=== PATIENT | male | born 1990 | race Hispanic/Latino ===

== ENCOUNTER 2017-01-03 19:08 | Emergency (ER) | payer SELFPAY ==
[2017-01-03 20:20] LABS: Basophils % (Auto) 0.8 % (0.0-1.8); Eosinophils % (Auto) 0.8 % (0.0-4.3); Hematocrit 45.5 % (35.5-45.6); Hemoglobin 15.4 gm/dl (11.8-15.2); Mean Corpuscular HGB Conc 34 % (32-34); Mean Corpuscular Hemoglobin 33 pg (28-32); Mean Corpuscular Volume 99 fl (84-94); Platelet Count 257 K/mm3 (140-440); Red Blood Count 4.61 M/mm3 (3.65-5.03); Red Cell Distribution Width 12.8 % (13.2-15.2); White Blood Count 4.9 K/mm3 (4.5-11.0)
[2017-01-03 20:39] LABS: Alanine Aminotransferase 24 units/L (7-56); Albumin 4.7 g/dL (3.9-5); Albumin/Globulin Ratio 1.5 %; Alkaline Phosphatase 62 units/L (35-129); Anion Gap 18 mmol/L; BUN/Creatinine Ratio 12.85; Blood Urea Nitrogen 9 mg/dL (9-20); Carbon Dioxide 27 mmol/L (22-30); Chloride 99.8 mmol/L (98-107); Glucose 101 mg/dL (75-100); Lipase 21 units/L (13-60); Sodium 141 mmol/L (137-145); Total Protein 7.8 g/dL (6.3-8.2)
[2017-01-04 00:31] LABS: Bilirubin,Urine NEG (Negative); Blood,Urine NEG (Negative); Ketones,Urine NEG (Negative); Leukocyte Esterase,Urine NEG (Negative); Mucus,Urine FEW /HPF; Nitrite,Urine NEG (Negative); Protein,Urine <15 mg/dL mg/dL (Negative); Urobilinogen,Urine < 2.0 mg/dL (<2.0); WBC,Urine < 1.0 /HPF (0.0-6.0)
[2017-01-04 03:15] VITALS: BP 133/89
--- NOTE | 2017-01-12 00:12 | ED Elopement Review ---
ED Pt Elopement review - Results review Lab results: Laboratory Tests 01/03/17 01/03/17 01/03/17 19:35 19:35 23:09 WBC 4.9 RBC 4.61 Hgb 15.4 H Hct 45.5 MCV 99 H MCH 33 H MCHC 34 RDW 12.8 L Plt Count 257 Lymph % (Auto) 36.1 H Meigs % (Auto) 11.3 H Eos % (Auto) 0.8 Baso % (Auto) 0.8 Lymph # 1.8 Meigs # 0.6 Eos # 0.0 Baso # 0.0 Seg Neutrophils % 51.0 Seg Neutrophils # 2.5 Sodium 141 Potassium 4.0 Chloride 99.8 Carbon Dioxide 27 Anion Gap 18 BUN 9 Creatinine 0.7 L Estimated GFR > 60 BUN/Creatinine Ratio 12.85 Glucose 101 H Calcium 10.0 Total Bilirubin 0.50 AST 23 ALT 24 Alkaline Phosphatase 62 Total Protein 7.8 Albumin 4.7 Albumin/Globulin Ratio 1.5 Lipase 21 Urine Color Yellow Urine Turbidity Clear Urine pH 6.0 Ur Specific Barry 1.011 Urine Protein <15 mg/dl Urine Glucose (UA) Neg Urine Ketones Neg Urine Blood Neg Urine Nitrite Neg Urine Bilirubin Neg Urine Urobilinogen < 2.0 Ur Leukocyte Esterase Neg Urine WBC (Auto) < 1.0 Urine RBC (Auto) 1.0 Urine Mucus Few - Call Back decision Pt Call Back Decision: No action required
== END 2017-01-03 20:00 | disposition left against medical advice (07) ==
LOC: ED 19:08
DX: R10.9 Unspecified abdominal pain (principal); Z53.21 Procedure and treatment not carried out due to patient leaving prior to being seen by health care provider
CPT/HCPCS: 36415; 80053; 81001; 83690; 85025